=== PATIENT | female | born 2000 | race Caucasian/White ===

== ENCOUNTER 2021-06-27 16:05 | Emergency (ER) | payer MEDICAID ==
[~2021-06-27] VITALS: Ht 175.3 cm; Wt 54.0 kg
[2021-06-27 17:05] VITALS: BP 112/77
== END 2021-06-27 17:24 | disposition home or self-care (01) ==
LOC: ED 17:18
DX: Z20.822 Contact with and (suspected) exposure to COVID-19 (principal); R05 Cough
CPT/HCPCS: 99283; U0003; U0005